=== PATIENT | female | born 1955 | race Caucasian/White ===

== ENCOUNTER 2022-08-28 15:24 | Emergency (ER) | payer MEDICARE ==
[2022-08-28] VITALS (16 sets, daily range): BP systolic 146–186; BP diastolic 53–91
[~2022-08-28] VITALS: Ht 167.6 cm; Wt 94.3 kg
[2022-08-28] MEDS ORDERED: DOXAZOSIN1 MG PO (17:13)
[2022-08-28] MEDS ORDERED: PLENDIL5 MG PO (17:14)
[2022-08-28] MEDS ORDERED: FUROSEMIDE20 MG PO (17:16)
[2022-08-28] MEDS ORDERED: PHENTERMINE HCL15 MG PO (17:17)
[2022-08-28] MEDS ORDERED: ROSUVASTATIN CAL5 MG PO (17:18)
[2022-08-28] MEDS ORDERED: SERTRALINE50 MG PO (17:19)
[2022-08-28] MEDS ORDERED: ATENOLOL50 MG PO (17:19)
[2022-08-28] MEDS ORDERED: BENAZEPRIL40 M1 PO (17:20)
[2022-08-28] MEDS ORDERED: PREDNISONE10 MG PO (19:38)
== END 2022-08-28 20:10 | disposition home or self-care (01) ==
LOC: ED 15:24
DX: M54.16 Radiculopathy, lumbar region (principal)